=== PATIENT | male | born 1980 | race Caucasian/White ===

== ENCOUNTER 2017-06-04 15:59 | Emergency (ER) | payer BC, OTHER ==
[2017-06-04] MEDS ORDERED: Proparacaine 0.5% Opth 15 ML BOT ONE (16:17)
[2017-06-04] MEDS ORDERED: Fluorescein Opthalmic Strip ONE (16:17)
== END 2017-06-04 16:39 | disposition home or self-care (01) ==
LOC: ERS 15:59
DX: T26.42XA Burn of left eye and adnexa, part unspecified, initial encounter (principal); M10.9 Gout, unspecified; E03.9 Hypothyroidism, unspecified; E78.5 Hyperlipidemia, unspecified; I10 Essential (primary) hypertension; X08.8XXA Exposure to other specified smoke, fire and flames, initial encounter; Y99.0 Civilian activity done for income or pay
CPT/HCPCS: 99283